=== PATIENT | male | born 1955 | race Caucasian/White ===

== ENCOUNTER 2017-08-04 12:23 | Emergency (ER) | payer OTHER ==
[~2017-08-04] VITALS: Ht 182.8 cm; Wt 127.0 kg
[~2017-08-04 12:23] MED LIST: FLEXERIL5 MG PO; IBU-8800 MG PO; VICODIN 5/500 505 MG PO; VOLTAREN50 M1 PO
[2017-08-04 12:45] VITALS: BP 143/77
== END 2017-08-04 14:15 | disposition home or self-care (01) ==
LOC: ED 12:23
DX: B34.9 Viral infection, unspecified (principal); R03.0 Elevated blood-pressure reading, without diagnosis of hypertension

== ENCOUNTER 2021-10-28 23:03 | Emergency (ER) | payer MEDICARE, MEDICAID ==
[~2021-10-28] VITALS: Ht 182.8 cm; Wt 121.6 kg
[2021-10-28 23:24] VITALS: BP 138/78
== END 2021-10-29 03:37 | disposition home or self-care (01) ==
LOC: ED 23:03
DX: R07.89 Other chest pain (principal); M54.2 Cervicalgia; M25.552 Pain in left hip; R51.9 Headache, unspecified; V43.52XA Car driver injured in collision with other type car in traffic accident, initial encounter; Y93.I9 Activity, other involving external motion; Y92.488 Other paved roadways as the place of occurrence of the external cause; Y99.8 Other external cause status

== ENCOUNTER 2022-08-18 22:11 | Emergency (ER) | payer MEDICARE, MEDICAID ==
[~2022-08-18] VITALS: Ht 182.8 cm; Wt 115.4 kg
[2022-08-18 22:28] VITALS: BP 129/71
[2022-08-18] MEDS ORDERED: METFORMIN HYDR500 MG PO (22:47)
[2022-08-18] MEDS ORDERED: JARDIANCE25 MG PO (22:47)
[2022-08-18] MEDS ORDERED: PRASUGREL HCL10 MG PO (22:48)
[2022-08-18] MEDS ORDERED: TRAMADOL HCL50 MG PO (22:48)
[2022-08-18] MEDS ORDERED: MELOXICAM7.5 MG PO (22:48)
[2022-08-18] MEDS ORDERED: METOPROLOL SUCC50 M1 PO (22:48)
[2022-08-18] MEDS ORDERED: ATORVASTATIN CA20 M1 PO (22:48)
[2022-08-18] MEDS ORDERED: GOOD NEIGHBOR L10 MG PO (22:49)
[2022-08-18] MEDS ORDERED: TAMSULOSIN HCL0.4 MG PO (22:49)
[2022-08-18] MEDS ORDERED: HYDROXYZINE HCL25 MG PO (22:49)
[2022-08-18 22:52] LABS: BASO % 0.5 % (0.0-1.0); EOS # 0.2 10*3/uL (0.0-0.4); EOS % 3.6 % (1.0-4.0); HEMATOCRIT 41.7 % (42.0-52.0); LYMPH # 0.8 10*3/uL (1.3-4.4); LYMPH % 12.6 % (27.0-41.0); MEAN CELL VOLUME 90.1 fl (80.0-94.0); MEAN CORPUSCULAR HGB CONC 33.3 g/dl (33.0-37.0); MEAN PLATELET VOLUME 10.4 fl (9.6-12.3); MONO # 0.7 10*3/uL (0.1-1.0); MONO % 11.2 % (3.0-9.0); NEUT # 4.6 10*3/uL (2.3-7.9); NEUT % 71.8 % (47.0-73.0); PLATELET COUNT AUTOMATED 143 10*3/uL (130-400); RED BLOOD COUNT 4.63 10*6/uL (4.50-5.90); RED CELL DISTRI WIDTH 13.7 % (0-14.5); WHITE BLOOD COUNT 6.4 10*3/uL (4.8-10.8)
[2022-08-18 23:14] LABS: ALKALINE PHOSPHATASE 95 U/L (46-116); BUN 17 mg/dl (9-23); CHLORIDE 107 mmol/L (98-107); SGPT/ALT 28 U/L (10-49); TOTAL PROTEIN 6.9 gm/dL (6.0-8.0)
[2022-08-18] MEDS ORDERED: Percocet 325 MG1 TAB PO (23:28)
== END 2022-08-19 00:44 | disposition home or self-care (01) ==
LOC: ED 22:11
PROVIDERS: Emergency Medicine
DX: S76.011A Strain of muscle, fascia and tendon of right hip, initial encounter (principal); S40.011A Contusion of right shoulder, initial encounter; Z79.899 Other long term (current) drug therapy; Z90.89 Acquired absence of other organs; W19.XXXA Unspecified fall, initial encounter; Y93.89 Activity, other specified; Y92.89 Other specified places as the place of occurrence of the external cause; Y99.8 Other external cause status

== ENCOUNTER 2022-08-26 00:39 | Emergency (ER) | payer MEDICARE, MEDICAID ==
[~2022-08-26] VITALS: Ht 185.4 cm; Wt 114.3 kg
[~2022-08-26 00:39] MED LIST changes: +ATORVASTATIN CA20 M1 PO; +GOOD NEIGHBOR L10 MG PO; +HYDROXYZINE HCL25 MG PO; +JARDIANCE25 MG PO; +MELOXICAM7.5 MG PO; +METFORMIN HYDR500 MG PO; +METOPROLOL SUCC50 M1 PO; +PRASUGREL HCL10 MG PO; +Percocet 325 MG1 TAB PO; +TAMSULOSIN HCL0.4 MG PO; +TRAMADOL HCL50 MG PO
[2022-08-26 01:13] LABS: BASO % 0.5 % (0.0-1.0); EOS # 0.2 10*3/uL (0.0-0.4); EOS % 2.8 % (1.0-4.0); HEMATOCRIT 24.4 % (42.0-52.0); LYMPH # 0.9 10*3/uL (1.3-4.4); LYMPH % 12.5 % (27.0-41.0); MEAN CELL VOLUME 92.8 fl (80.0-94.0); MEAN CORPUSCULAR HGB 30.8 pg (27.0-31.0); MEAN CORPUSCULAR HGB CONC 33.2 g/dl (33.0-37.0); MONO # 0.8 10*3/uL (0.1-1.0); MONO % 10.5 % (3.0-9.0); NEUT # 5.5 10*3/uL (2.3-7.9); NEUT % 73.2 % (47.0-73.0); PLATELET COUNT AUTOMATED 205 10*3/uL (130-400); RED BLOOD COUNT 2.63 10*6/uL (4.50-5.90); RED CELL DISTRI WIDTH 15.2 % (0-14.5); WHITE BLOOD COUNT 7.5 10*3/uL (4.8-10.8)
[2022-08-26 01:28] LABS: ALKALINE PHOSPHATASE 78 U/L (46-116); BUN 11 mg/dl (9-23); CHLORIDE 110 mmol/L (98-107); POTASSIUM 4.3 mmol/L (3.4-5.1); SGPT/ALT 23 U/L (10-49); TOTAL PROTEIN 5.3 gm/dL (6.0-8.0)
[2022-08-26 02:22] LABS: INTERNATIONAL NORM RATIO 1.1 (2.0-3.5)
[2022-08-26 02:39] VITALS: BP 122/61
== END 2022-08-26 03:00 | disposition short-term general hospital (02) ==
LOC: ED
PROVIDERS: Emergency Medicine
DX: S00.81XA Abrasion of other part of head, initial encounter (principal); S60.512A Abrasion of left hand, initial encounter; S60.511A Abrasion of right hand, initial encounter; S00.211A Abrasion of right eyelid and periocular area, initial encounter; S40.212A Abrasion of left shoulder, initial encounter; D72.829 Elevated white blood cell count, unspecified; N39.0 Urinary tract infection, site not specified; M25.561 Pain in right knee; M25.562 Pain in left knee; R73.9 Hyperglycemia, unspecified; Z88.8 Allergy status to other drugs, medicaments and biological substances; Z88.1 Allergy status to other antibiotic agents; Z90.89 Acquired absence of other organs; V89.2XXA Person injured in unspecified motor-vehicle accident, traffic, initial encounter; Y93.89 Activity, other specified; Y92.89 Other specified places as the place of occurrence of the external cause; Y99.8 Other external cause status

== ENCOUNTER 2025-03-30 21:45 | Emergency (ER) | payer MEDICARE, MEDICAID ==
[~2025-03-30] VITALS: Wt 108.0 kg
[2025-03-30 21:59] VITALS: BP 161/76
[2025-03-30] MEDS ORDERED: PREDNISONE20 M1 PO (23:06)
[2025-03-30] MEDS ORDERED: Water, Sterile 10 ML VIAL ONE (23:31)
== END 2025-03-30 23:11 | disposition home or self-care (01) ==
LOC: ED 21:45
DX: S70.02XA Contusion of left hip, initial encounter (principal); I10 Essential (primary) hypertension; E11.9 Type 2 diabetes mellitus without complications; I25.10 Atherosclerotic heart disease of native coronary artery without angina pectoris; E78.00 Pure hypercholesterolemia, unspecified; W20.0XXA Struck by falling object in cave-in, initial encounter; Y93.89 Activity, other specified; Y92.89 Other specified places as the place of occurrence of the external cause; Y99.8 Other external cause status